=== PATIENT | female | born 1935 | race Caucasian/White ===

== ENCOUNTER 2017-06-12 08:16 | Day surgery (SDC) | payer MEDICARE ==
[2017-06-11 14:06] VITALS: BMI 30.1
[~2017-06-12 08:16] MED LIST: Cyclopentolate 1% Opth Drop 2 ML BOT FS SCH; EPINEPHrine 0.3 MG in Ophthalmic Irrigation Solution 500 ML FS SCH; Phenylephrine HCl 2.5% Ophth Soln 5 ML BOT FS SCH
[2017-06-12] MEDS ORDERED: Phenylephrine HCl 2.5% Ophth Soln 5 ML BOT ONE (08:30)
[2017-06-12] MEDS ORDERED: Cyclopentolate 1% Opth Drop 2 ML BOT ONE (08:30)
[2017-06-12] MEDS ORDERED: Midazolam HCl 2 mg/2 ml Vial ONE (11:16)
[2017-06-12] MEDS ORDERED: Fentanyl 100 MCG/2 ML VIAL ONE (11:16)
[2017-06-12] MEDS ORDERED: Diprivan 20 ML ONE (11:17)
[2017-06-12] MEDS ORDERED: Ondansetron HCl/PF 4 MG/2 ML Vial ONE ×2 (11:17→11:31)
[2017-06-12] MEDS ORDERED: Lidocaine 2% PF 10 ML AMP (For Epidural Use) ONE (11:31)
[2017-06-12] MEDS ORDERED: ePHEDrine/0.9% NaCl/PF SYRINGE 50 mg/10 ml ONE (11:31)
[2017-06-12] MEDS ORDERED: Propofol 200 MG/20 ML VIAL ONE (11:31)
--- NOTE | 2017-06-17 07:54 | OP ---
DATE OF PROCEDURE: 06/12/2017 PREOPERATIVE DIAGNOSIS: Posterior dislocated intraocular lens. POSTOPERATIVE DIAGNOSIS: Posterior dislocated intraocular lens. PROCEDURE: Intraocular lens repositioning with suture, right eye. SURGEON: Dr. Juno Vásquez ANESTHESIA: General endotracheal. COMPLICATIONS: None. PROCEDURE IN DETAIL: The patient was identified in the preoperative holding area. Appropriate info rmed consent for the planned surgical procedure on the right eye had been obtained. The patient was transported to the operative suite where general endotracheal anesthesia was initiated. The patien t was prepped and draped in the usual sterile manner for ophthalmic surgery on the right eye. Lid s peculum was placed in the right eye. The 25-gauge trocars were placed in conjunctiva and sclera sup ratemporally, inferotemporally, and supranasally. Infusion line was placed inferotemporally. Light pipe and vitreous cutter were inserted into the eye and the posterior located intraocular lens was identified. IOL was elevated using a light pipe and a 9-0 Prolene suture was placed around the temp oral haptic through the intraocular lens and then through the pars plana 2 mm posterior to the limbu s at the 9 o'clock position through a previously created scleral tunnel. The same procedure was rep eated nasally and the sutures were tightened so that the lens centers itself in the visual axis. Wi de field viewing system was used to examine the retina posteriorly. No holes, breaks or tears were identified. Trocars were removed and eye was noted to retain pressure well. Retrobulbar Kenalog an d subconjunctival Ancef were placed. Atropine and antibiotic ointment were placed, and the eye was patched and shielded. The patient was taken to the postoperative recovery unit in good condition pat ving suffered no immediate perioperative complications. DISCHARGE INSTRUCTIONS: The patient was instructed to keep patch and shield on, avoid lifting and b ending, and follow up in the morning with Dr. Vásquez.
== END 2017-06-12 14:48 | disposition home or self-care (01) ==
LOC: SDC 08:16
PROVIDERS: ATTEND Ophthalmology Retina Specialist
PROC: 08SJ3ZZ Reposition Right Lens, Percutaneous Approach (ICD-10-PCS; principal; 2017-06-12)
DX: T85.22XA Displacement of intraocular lens, initial encounter (principal); I10 Essential (primary) hypertension; I25.10 Atherosclerotic heart disease of native coronary artery without angina pectoris; I48.91 Unspecified atrial fibrillation; E78.5 Hyperlipidemia, unspecified; Z86.19 Personal history of other infectious and parasitic diseases; E03.9 Hypothyroidism, unspecified; Z79.01 Long term (current) use of anticoagulants; Z79.82 Long term (current) use of aspirin; Z79.899 Other long term (current) drug therapy; Z88.0 Allergy status to penicillin; Z88.1 Allergy status to other antibiotic agents; Z91.040 Latex allergy status; Z96.1 Presence of intraocular lens; Z95.818 Presence of other cardiac implants and grafts; Z90.710 Acquired absence of both cervix and uterus; Z90.89 Acquired absence of other organs; Z90.49 Acquired absence of other specified parts of digestive tract; Z98.890 Other specified postprocedural states
CPT/HCPCS: J0171; J2001; J2250; J2405; J2704; J3010

== ENCOUNTER 2018-01-01 07:26 | Day surgery (SDC) | payer MEDICARE ==
[2017-12-31 16:24] VITALS: BMI 30.4
[~2018-01-01 07:26] MED LIST changes: +Phenylephrine 2.5% Ophth Soln 5 ML BOT FS SCH; -Phenylephrine HCl 2.5% Ophth Soln 5 ML BOT FS SCH
[2018-01-01] MEDS ORDERED: Phenylephrine 2.5% Ophth Soln 5 ML BOT ONE (07:40)
[2018-01-01] MEDS ORDERED: Cyclopentolate 1% Opth Drop 2 ML BOT ONE (07:40)
[2018-01-01] MEDS ORDERED: Midazolam HCl 2 mg/2 ml Vial ONE (09:12)
[2018-01-01] MEDS ORDERED: Lidocaine 2% 10 ML INJ ONE (09:12)
[2018-01-01] MEDS ORDERED: Fentanyl 100 MCG/2 ML VIAL ONE (09:12)
[2018-01-01] MEDS ORDERED: PROPOFOL 20 ML ONE (09:12)
[2018-01-01] MEDS ORDERED: Indocyanine Green 25 MG/10 ML VIAL ONE (09:35)
--- NOTE | 2018-01-01 11:02 | OP ---
DATE OF SURGERY: 01/01/2018 PREOPERATIVE DIAGNOSIS: Macular hole, right eye. POSTOPERATIVE DIAGNOSIS: Macular hole, right eye. PROCEDURE: Pars plana vitrectomy and membrane peel, right eye. SURGEON: Juno Vásquez M.D. ANESTHESIA: Local with monitored anesthesia care. PROCEDURE IN DETAIL: The patient was identified in the preoperative holding area. Appropriate info rmed consent planned surgical procedure on the right eye had been obtained, the patient was transport ed to the OR suite. Appropriate cardiopulmonary monitoring was established. Local anesthesia obtain ed using retrobulbar block. The patient was prepped and draped in the usual sterile manner for ophth almic surgery on the right eye. Lid speculum was placed in the right eye. The 25-gauge trocars were placed in conjunctiva and sclera supratemporally, inferotemporally, and supranasally. Infusion line was placed inferotemporally. Light pipe and vitreous cutter were inserted into the eye. Core vitre ctomy was performed. No residual vitreous was identified. Indocyanine site green dye was infused on the posterior pole x1, identifying the epiretinal membrane and internal limiting membrane. Extensiv e applications of scraping, picking, and lifting with forceps failed to elevate the present epiretina l membrane. Complete air fluid exchange was performed with 10 minutes being allowed for fluid to fabiano in posteriorly. A 28% sulfur x-ray gas was infused into the eye. Trocars were removed. Sclerotomy was sutured closed. Retrobulbar Kenalog and subconjunctival Ancef were placed. Atropine and antibio tic ointment were placed, and the eye was patched and shielded. The patient was taken to the postope rative recovery unit in good condition having suffered no immediate perioperative complications. DISCHARGE INSTRUCTIONS: The patient was instructed to keep patch and shield on, avoid flat on back p osition, follow up appointment with Dr. Vásquez.
[2018-01-01] MEDS ORDERED: PROPOFOL 200 MG/20 ML VIAL ONE (13:10)
[2018-01-01] MEDS ORDERED: Lidocaine 1% PF 5 ML VIAL ONE (13:10)
== END 2018-01-01 11:30 | disposition home or self-care (01) ==
LOC: SDC 07:26
PROVIDERS: ATTEND Ophthalmology Retina Specialist
PROC: 08943ZZ Drainage of Right Vitreous, Percutaneous Approach (ICD-10-PCS; principal; 2018-01-01)
PROC: 3E0C3GC Introduction of Other Therapeutic Substance into Eye, Percutaneous Approach (ICD-10-PCS; 2018-01-01)
DX: H35.341 Macular cyst, hole, or pseudohole, right eye (principal); Z88.1 Allergy status to other antibiotic agents; Z88.0 Allergy status to penicillin; Z91.040 Latex allergy status
CPT/HCPCS: 67025; J0171; J2001; J2250; J2704; J3010